=== PATIENT | female | born 1945 | race Caucasian/White ===

== ENCOUNTER 2017-10-30 11:06 | Day surgery (SDC) | payer MEDICARE, OTHER ==
[~2017-10-30] VITALS: Ht 157.5 cm; Wt 104.7 kg
[2017-10-30] VITALS (11 sets, daily range): BP systolic 145–171; BP diastolic 69–82
[2017-10-30] MEDS ORDERED: normal saline 1000ml 1,000 ML IV SCH ×2 (11:55→12:40)
[2017-10-30] MEDS ORDERED: fentaNYL/PF 50MCG/1 ML 2ML syringe IV ONE (12:40)
[2017-10-30] MEDS ORDERED: MIDAZolam 5mg/ml 2ml vial IV ONE (12:40)
[2017-10-30] MEDS ORDERED: ATOR10TA87 PO (13:23)
[2017-10-30] MEDS ORDERED: ASPI-1265 PO (13:23)
[2017-10-30] MEDS ORDERED: POLY17PO10 PO (13:23)
[2017-10-30] MEDS ORDERED: INSU100V13 SQ (13:23)
[2017-10-30] MEDS ORDERED: METO50TA7 PO (13:23)
[2017-10-30] MEDS ORDERED: APIX5TAB3 PO (13:23)
[2017-10-30] MEDS ORDERED: DOCU100C40 PO (13:23)
[2017-10-30] MEDS ORDERED: Nystatin PO (13:23)
[2017-10-30] MEDS ORDERED: FURO-150 PO (13:23)
[2017-10-30] MEDS ORDERED: PANT-47 PO (13:23)
[2017-10-30] MEDS ORDERED: pneumococcal 23-VAL P-sac vacc 25 mcg/0.5ml vial IMVAC ONE (17:45)
== END 2017-10-30 15:30 | disposition home or self-care (01) ==
LOC: SSTAY O 11:06
PROVIDERS: ATTEND Internal Medicine Interventional Cardiology
DX: I48.91 Unspecified atrial fibrillation (principal); I49.8 Other specified cardiac arrhythmias; I34.0 Nonrheumatic mitral (valve) insufficiency; E11.9 Type 2 diabetes mellitus without complications; I11.0 Hypertensive heart disease with heart failure; I50.9 Heart failure, unspecified; K21.9 Gastro-esophageal reflux disease without esophagitis; I25.10 Atherosclerotic heart disease of native coronary artery without angina pectoris; E66.9 Obesity, unspecified; Z68.42 Body mass index [BMI] 45.0-49.9, adult; Z98.51 Tubal ligation status; Z79.82 Long term (current) use of aspirin; Z86.73 Personal history of transient ischemic attack (TIA), and cerebral infarction without residual deficits; Z95.5 Presence of coronary angioplasty implant and graft; Z79.01 Long term (current) use of anticoagulants; Z79.4 Long term (current) use of insulin; Z79.899 Other long term (current) drug therapy; Z98.890 Other specified postprocedural states
CPT/HCPCS: 82948; 92960; 93005; 93312; J2250; J3010; J7030